=== PATIENT | female | born 1990 | race American Indian/Alaskan Native ===

== ENCOUNTER 2016-10-19 10:08 | Emergency (ER) | payer SELFPAY ==
[2016-10-19 11:16] VITALS: BP 109/74
[2016-10-19 12:35] LABS: Bacteria,Urine 1+ /HPF (Negative); Bilirubin,Urine NEG (Negative); Blood,Urine NEG (Negative); Ketones,Urine 80 mg/dL (Negative); Leukocyte Esterase,Urine TR (Negative); Nitrite,Urine NEG (Negative); Urobilinogen,Urine < 2.0 mg/dL (<2.0)
--- NOTE | 2016-10-19 13:07 | Emergency Department Report ---
ED Female HPI - General Chief complaint: Urogenital-Female Stated complaint: POSS UTI Time Seen by Provider: 10/19/16 13:05 Source: patient, family Mode of arrival: Ambulatory Limitations: No Limitations - History of Present Illness Initial comments: Patient here complaining of urine has having bad odor, lower back pain and pain with urinating. She denies any fever or chills. He reports that started 4 days ago. Pain to lower back is 7 out of 10. Nausea vomiting. Denies any abdominal pain. MD Complaint: dysuria Onset/Timin -: days(s) Location: other (lower back) Radiation: non-radiating Severity: moderate Severity scale (0 -10): 7 Quality: aching Consistency: constant Improves with: none Worsens with: urination Are you Now?: No Associated Symptoms: dysuria. denies: vaginal discharge, vaginal bleeding, abdominal pain, nausea/vomiting, fever/chills, headaches, loss of appetite, hematuria, rash, seizure, shortness of breath, syncope, weakness - Related Data Sexually active: Yes Previous Rx's Medication Instructions Recorded Last Taken Type Nitrofurantoin [place]/M-Cryst 100 mg PO Q12HR #14 capsule 10/19/16 Unknown Rx [Macrobid CAP] Allergies Allergy/AdvReac Type Severity Reaction Status Date / Time No Known Allergies Allergy Unverified 10/08/13 18:22 ED Review of Systems ROS: Stated complaint: POSS UTI Other details as noted in HPI Comment: All other systems reviewed and negative Constitutional: denies: chills, fever Respiratory: no symptoms reported Cardiovascular: denies: chest pain, palpitations, edema, syncope Gastrointestinal: denies: abdominal pain, nausea, vomiting, diarrhea Genitourinary: dysuria. denies: urgency, frequency, hematuria, discharge, abnormal menses, dyspareunia Musculoskeletal: back pain. denies: arthralgia Skin: denies: rash Neurological: denies: headache, weakness, abnormal gait, vertigo ED Past Medical Hx - Past Medical History Previous Medical History?: No - Surgical History Past Surgical History?: No - Family History Family history: no significant - Social History Smoking Status: Never Smoker Substance Use Type: None - Medications Home Medications: Home Medications Medication Instructions Recorded Confirmed Last Taken Type Nitrofurantoin [place]/M-Cryst 100 mg PO Q12HR #14 capsule 10/19/16 Unknown Rx [Macrobid CAP] ED Physical Exam - General Limitations: No Limitations General appearance: alert, in no apparent distress - Head Head exam: Present: atraumatic, normocephalic, normal inspection - Eye Eye exam: Present: normal appearance, PERRL, EOMI Pupils: Present: normal accommodation - ENT ENT exam: Present: normal exam, normal orophraynx, mucous membranes moist, TM's normal bilaterally, normal external ear exam - Neck Neck exam: Present: normal inspection, full ROM. Absent: tenderness, lymphadenopathy - Respiratory Respiratory exam: Present: normal lung sounds bilaterally. Absent: respiratory distress, chest wall tenderness - Cardiovascular Cardiovascular Exam: Present: regular rate, normal rhythm, normal heart sounds - GI/Abdominal GI/Abdominal exam: Present: soft, normal bowel sounds. Absent: distended, tenderness, guarding, rebound, rigid - Extremities Exam Extremities exam: Present: normal inspection, full ROM, normal capillary refill. Absent: tenderness, pedal edema, joint swelling, calf tenderness - Back Exam Back exam: Present: normal inspection, full ROM. Absent: tenderness, CVA tenderness (R), CVA tenderness (L), muscle spasm, paraspinal tenderness, vertebral tenderness, rash noted - Neurological Exam Neurological exam: Present: alert, oriented X3, normal gait, reflexes normal. Absent: motor sensory deficit - Psychiatric Psychiatric exam: Present: normal affect, normal mood - Skin Skin exam: Present: warm, dry, intact, normal color. Absent: rash ED Course Vital Signs 10/19/16 11:13 Temperature 98.4 F Pulse Rate 87 Respiratory 16 Rate Blood Pressure 109/74 O2 Sat by Pulse 100 Oximetry - Reevaluation(s) Reevaluation #1: 10/19/16 14:26 Patient tolerated oral liquids in emergency room without any nausea or vomiting. ED Medical Decision Making - Lab Data Lab Results 10/19/16 Range/Units Unknown Urine Color Yellow (Yellow) Urine Turbidity Clear (Clear) Urine pH 6.0 (5.0-7.0) Ur Specific [place] 1.012 (1.003-1.030) Urine Protein 30 mg/dl (Negative) mg/dL Urine Glucose (UA) Neg (Negative) mg/dL Urine Ketones 80 (Negative) mg/dL Urine Blood Neg (Negative) Urine Nitrite Neg (Negative) Urine Bilirubin Neg (Negative) Urine Urobilinogen < 2.0 (<2.0) mg/dL Ur Leukocyte Esterase Tr (Negative) Urine WBC (Auto) 1.0 (0.0-6.0) /HPF Urine RBC (Auto) 1.0 (0.0-6.0) /HPF U Epithel Cells (Auto) 5.0 (0-13.0) /HPF Urine Bacteria (Auto) 1+ (Negative) /HPF Urine HCG, Qual Negative (Negative) Urine CX pending - Medical Decision Making ED course: Patient here complaining that she feels like she is has a UTI. Urinalysis revealed bladder infection. Patient also has seen and ketones in her urine. Additional lab work ordered for CBC, BMP. IV fluid 1 L bolus ordered. Patient with diffuse IV fluid and blood work. See AMA documentation. I expressed the patient the need for her to have IV fluids and further lab work but she said she wants to go home and drink fluids when she gets home. Patient discharged home in stable condition with her family with prescription for Macrobid. Critical care attestation.: If time is entered above; I have spent that time in minutes in the direct care of this critically ill patient, excluding procedure time. ED Disposition Clinical Impression: Acute cystitis without hematuria, Dehydration, mild, Proteinuria Disposition: DISCHARGED TO HOME OR SELFCARE Is pt being admited?: No Does the pt Need Aspirin: No Condition: Stable Instructions: Urinary Tract Infection in Women (ED), Dehydration (ED) Additional Instructions: Your urine reflects that uvula dehydrated and she refused to have lab work and IV fluid in emergency room. Urine also shows that you have protein in her urine. He will need to follow-up with primary care physician in 3 days. Please strength at least 2-3 L of fluid daily He developed nausea and vomiting, abdominal pain, fever and flank pain please return to emergency room HANH Prescriptions: Nitrofurantoin [place]/M-Cryst [Macrobid CAP] 100 mg PO Q12HR #14 capsule Referrals: PRIMARY CARE, [Primary Care Provider] - 3-5 Days Forms: AMA Form
[2016-10-19] MEDS ORDERED: NACL 0.9% 1000 ML 1,000 ML IV ONE (13:59)
[2016-10-19] MEDS ORDERED: ZOFRAN IV ONE (13:59)
[2016-10-19] MEDS ORDERED: ROCEPHIN IV STA (14:00)
== END 2016-10-19 14:44 | disposition home or self-care (01) ==
LOC: ED 10:08
DX: N30.00 Acute cystitis without hematuria (principal); E86.0 Dehydration; R80.9 Proteinuria, unspecified
CPT/HCPCS: 81001; 81025; 99283

== ENCOUNTER 2017-02-19 06:45 | Emergency (ER) | payer SELFPAY ==
[2017-02-19 07:09] VITALS: BP 110/74
--- NOTE | 2017-02-19 09:13 | XRay Report ---
ROUTINE CHEST, TWO VIEWS: PA and lateral views demonstrate the heart and mediastinal contour to be of normal size and shape. The lungs are clear and fully expanded and the soft tissues and bony structures are normal. IMPRESSION: Normal study.
[2017-02-19] MEDS ORDERED: FLEXERIL PO ONE (10:03)
[2017-02-19] MEDS ORDERED: NORCO 5/325 PO ONE (10:03)
--- NOTE | 2017-02-19 10:43 | Emergency Department Report ---
ED Chest Pain HPI - General Chief Complaint: Chest Pain Stated Complaint: RIGHT SIDE BODY PAIN Source: patient Mode of arrival: Ambulatory Limitations: No Limitations - History of Present Illness Initial Comments: 26 year old female presents to ED with right sided chest pain and right sided body pain x 2-3 days. patient has refused bloodwork and EKG. patient understands and agrees she will have to sign out AMA without bloodwork and EKG results. patient is stable, neurologically intact and in no acute distress. patient denies cough, SOB, fevers, abd pain, N/V. MD Complaint: chest pain -: Gradual Pain Location: right chest Pain Radiation: none Severity: mild Severity scale (0 -10): 6 Quality: aching Consistency: intermittent Improves With: remaining still Worsens With: exertion re: denies: nausea, vomting, diaphoresis, dyspnea Other Symptoms: denies: cough, fever, syncope, rash, leg swelling, palpitations Aspirin use within the Past 7 Days: (0) No - Related Data Previous Rx's Medication Instructions Recorded Last Taken Type Nitrofurantoin [place]/M-Cryst 100 mg PO Q12HR #14 capsule 10/19/16 Unknown Rx [Macrobid CAP] Allergies Allergy/AdvReac Type Severity Reaction Status Date / Time No Known Allergies Allergy Unverified 10/08/13 18:22 Heart Score - HEART Score History: Slightly suspicious EKG: Normal (patient refused EKG and signed out AMA) Age: < 45 Risk factors: No known risk factors Troponin: < normal limit (patient refused blood work and signed out AMA) HEART Score: 0 ED Review of Systems ROS: Stated complaint: RIGHT SIDE BODY PAIN Other details as noted in HPI Constitutional: denies: chills, fever Eyes: denies: eye pain, eye discharge, vision change ENT: denies: ear pain, throat pain Respiratory: denies: cough, shortness of breath, wheezing Cardiovascular: chest pain. denies: palpitations, dyspnea on exertion Endocrine: no symptoms reported Gastrointestinal: denies: abdominal pain, nausea, diarrhea Genitourinary: denies: urgency, dysuria, discharge Musculoskeletal: denies: back pain, joint swelling, arthralgia Skin: denies: rash, lesions Neurological: denies: headache, weakness, paresthesias Psychiatric: denies: anxiety, depression Hematological/Lymphatic: denies: easy bleeding, easy bruising ED Past Medical Hx - Past Medical History Previous Medical History?: Yes Additional medical history: Vaginal delivery 12-04-2013 - Surgical History Past Surgical History?: No - Social History Smoking Status: Never Smoker Substance Use Type: Non Opiate Pain - Medications Home Medications: Home Medications Medication Instructions Recorded Confirmed Last Taken Type Nitrofurantoin [place]/M-Cryst 100 mg PO Q12HR #14 capsule 10/19/16 Unknown Rx [Macrobid CAP] ED Physical Exam - General Limitations: No Limitations General appearance: alert, in no apparent distress - Head Head exam: Present: atraumatic, normocephalic - Eye Eye exam: Present: normal appearance - ENT ENT exam: Present: mucous membranes moist - Neck Neck exam: Present: normal inspection - Respiratory Respiratory exam: Present: normal lung sounds bilaterally. Absent: respiratory distress, wheezes - Cardiovascular Cardiovascular Exam: Present: regular rate, normal rhythm. Absent: systolic murmur, diastolic murmur, rubs, gallop - GI/Abdominal GI/Abdominal exam: Present: soft, normal bowel sounds. Absent: tenderness - Extremities Exam Extremities exam: Present: normal inspection - Back Exam Back exam: Present: normal inspection - Neurological Exam Neurological exam: Present: alert, oriented X3, normal gait - Psychiatric Psychiatric exam: Present: normal affect, normal mood - Skin Skin exam: Present: warm, dry, intact, normal color. Absent: rash ED Course Vital Signs 02/19/17 07:05 Temperature 98.7 F Pulse Rate 72 Respiratory 18 Rate Blood Pressure 110/74 O2 Sat by Pulse 99 Oximetry SARAH score - Sarah Score Age > 65: (0) No Aspirin use within the Past 7 Days: (0) No 3 or more CAD Risk Factors: (0) No 2 or more Angina events in past 24 hrs: (0) No Known CAD with more than 50% Stenosis: (0) No Elevated Cardiac Markers: (0) No (patient has refused blood work and signed out AMA) ST Deviation Greater than 0.5mm: (0) No (patient has refused EKG and signed out AMA) SARAH Score: 0 ED Medical Decision Making - Radiology Data Radiology results: report reviewed Normal Chest xray per radiologist - Medical Decision Making 26 year old female Ms. Garcia has decided to leave against medical advice. She has normal mental status and full decisional capacity. The patient understands her condition and the risks of leaving AMA, including but not limited to permanent disability, , etc. and has had an opportunity to ask questions about her medical condition. The RN working in fast track is also aware of the condition and the patient's desire to leave AMA. The patient has been informed that she may return to ED for care at any time, and has been referred to her local medical physician for follow up HANH. patient is neurologically intact and in no acute distress. Critical care attestation.: If time is entered above; I have spent that time in minutes in the direct care of this critically ill patient, excluding procedure time. ED Disposition Clinical Impression: Chest pain Qualifiers: Chest pain type: unspecified Qualified Code(s): R07.9 - Chest pain, unspecified Disposition: -07 LEFT AGAINST MED ADVICE Is pt being admited?: No Condition: Undetermined Instructions: Chest Pain (ED) Referrals: PRIMARY CARE, [Primary Care Provider] - HANH
== END 2017-02-19 10:21 | disposition left against medical advice (07) ==
LOC: ED 06:45
DX: R07.9 Chest pain, unspecified (principal)
CPT/HCPCS: 71020; 81025; 99284

== ENCOUNTER 2018-11-07 12:29 | Emergency (ER) | payer OTHER ==
[2018-11-07 12:37] VITALS: BP 113/64
--- NOTE | 2018-11-07 12:42 | Emergency Department Report ---
Blank Doc - Documentation Documentation: 28 y o female presents with pelvic pain states 9 weeks with one visit at [facility] denies vag bleed, courtney,
[2018-11-07 13:09] LABS: Bacteria,Urine 1+ /HPF (Negative); Bilirubin,Urine NEG (Negative); Blood,Urine NEG (Negative); Color,Urine Yellow (Yellow); Mucus,Urine FEW /HPF; Protein,Urine <15 mg/dL mg/dL (Negative); RBC,Urine < 1.0 /HPF (0.0-6.0); Urobilinogen,Urine < 2.0 mg/dL (<2.0)
[2018-11-07 13:14] LABS: Basophils % (Auto) 0.7 % (0.0-1.8); Eosinophils # (Auto) 0.1 K/mm3 (0.0-0.4); Eosinophils % (Auto) 1.2 % (0.0-4.3); Hematocrit 34.5 % (30.3-42.9); Hemoglobin 11.6 gm/dl (10.1-14.3); Lymphocytes # (Auto) 1.3 K/mm3 (1.2-5.4); Lymphocytes % (Auto) 24.5 % (13.4-35.0); Mean Corpuscular HGB Conc 34 % (30-34); Mean Corpuscular Volume 87 fl (79-97); Monocytes # (Auto) 0.5 K/mm3 (0.0-0.8); Monocytes % (Auto) 10.1 % (0.0-7.3); Platelet Count 205 K/mm3 (140-440); Red Blood Count 3.96 M/mm3 (3.65-5.03)
--- NOTE | 2018-11-07 16:18 | Ultrasound Report ---
PROCEDURE: US OB <= 14 WEEKS FETUS TECHNIQUE: Ultrasound of the pelvis for early OB performed with a transabdominal and transvaginal im aging HISTORY: preg w/ abd pain . LMP 08/30/2018 with estimated age 19 weeks 6 days and EDC 06/06/2019 COMPARISONS: FINDINGS: Uterus: Uterus is enlarged in size and normal and homogeneous in echogenicity without focal fibroid f ormation. The uterus measures 4.7 x 6.7 x 11.7 cm in size. There is a single early viable intrauter ine gestation noted. Intrauterine gestation: There is a single intrauterine gestation identified with both a pole a nd yolk sac. heart rate is monitored at 128 BPM using M-mode doppler. [place]-rump length measur ement of 0.89 cm corresponds to estimated age 6 weeks 6 days with EDC 06/27/2019.. There is a small sherman bchorionic hemorrhage measuring 8 x 13 mm along the caudal aspect gestational sac. Ovaries: Both ovaries appear normal in size and echogenicity with normal bloodflow bilaterally. The right ovary measures 3.6 x 4.6 x 2.0 cm and the left ovary measures 3.3 x 4.6 x 2.7 cm in size. Other: There is no evidence for solid is adnexal mass is seen. There is no free fluid in the cul-d e-sac. IMPRESSION: Single intrauterine viable with an approximate age of 6 weeks 6 days. This document is electronically signed by Fabiana Ruiz MD., November 07 2018 04:16:14 PM ET
--- NOTE | 2018-11-07 16:30 | Ultrasound Report ---
PROCEDURE: US OB TRANSVAGINAL TECHNIQUE: Ultrasound pelvis for early OB using transabdominal and transvaginal imaging HISTORY: preg with abd pain LMP 08/30/2018 with age 9 weeks 6 days and EDC 06/06/2019 COMPARISONS: None FINDINGS: Uterus: Uterus is enlarged in size and normal and homogeneous in echogenicity without focal fibroid f ormation. The uterus measures 11.7 x 5.7 x 6.7 cm in size. There is a single early viable intrauter ine gestation noted. Intrauterine gestation: There is a single intrauterine gestation identified with both a pole a nd yolk sac. heart rate is monitored at 128 BPM using M-mode doppler. [place]-rump length measur ement of 0.89 cm corresponds to estimated age 6 weeks 6 days with EDC 06/27/2019. There is a small sub chorionic hemorrhage along the caudal aspect of the gestational sac measuring 0.8 x 1.4 x 3.4 cm. Ovaries: Both ovaries appear normal in size and echogenicity with normal bloodflow bilaterally. The right ovary measures 3.6 x 2.0 x 4.6 cm and the left ovary measures 5.5 x 1.9 x 3.7 cm in size. Other: There is no evidence for solid adnexal mass is seen. There is no free fluid in the cul-de-s ac. IMPRESSION: Single intrauterine viable with an approximate age of 6 weeks 6 days. This document is electronically signed by Fabiana Ruiz MD., November 07 2018 04:28:09 PM ET
--- NOTE | 2018-11-07 16:47 | Emergency Department Report ---
ED Abdominal Pain HPI - General Chief Complaint: Abdominal Pain Stated Complaint: 9WKS/PAIN Time Seen by Provider: 11/07/18 12:36 Source: patient Mode of arrival: Ambulatory Limitations: No Limitations - History of Present Illness Initial Comments: Patient is a 28-year-old female who is presenting with lower abdominal discomfort for the past 2-3 days. Patient states that she is approximately 9 weeks but her estimates from her last missed her period. Patient states that she has no dysuria or vaginal bleeding does have some cramping that is intensifying. She states pain is currently a 4 out of 10 in severity. She is not having any issues with nausea vomiting this moment. Severity scale (0 -10): 4 - Related Data Previous Rx's Medication Instructions Recorded Last Taken Type Nitrofurantoin [place]/M-Cryst 100 mg PO Q12HR #14 capsule 10/19/16 Unknown Rx [Macrobid CAP] Allergies Allergy/AdvReac Type Severity Reaction Status Date / Time No Known Allergies Allergy Verified 11/07/18 12:34 ED Review of Systems ROS: Stated complaint: 9WKS/PAIN Other details as noted in HPI Comment: All other systems reviewed and negative ED Past Medical Hx - Past Medical History Previous Medical History?: No Additional medical history: Vaginal delivery 12-04-2013 - Surgical History Past Surgical History?: No - Social History Smoking Status: Never Smoker Substance Use Type: None - Medications Home Medications: Home Medications Medication Instructions Recorded Confirmed Last Taken Type Nitrofurantoin [place]/M-Cryst 100 mg PO Q12HR #14 capsule 10/19/16 Unknown Rx [Macrobid CAP] ED Physical Exam - General Limitations: No Limitations General appearance: alert, in no apparent distress - Head Head exam: Present: atraumatic, normocephalic - Eye Eye exam: Present: normal appearance - ENT ENT exam: Present: mucous membranes moist - Neck Neck exam: Present: normal inspection - Respiratory Respiratory exam: Present: normal lung sounds bilaterally. Absent: respiratory distress, wheezes, rales, rhonchi - Cardiovascular Cardiovascular Exam: Present: regular rate, normal rhythm. Absent: systolic murmur, diastolic murmur, rubs, gallop - GI/Abdominal GI/Abdominal exam: Present: soft, normal bowel sounds. Absent: distended, tenderness, guarding, rebound - Extremities Exam Extremities exam: Present: normal inspection - Back Exam Back exam: Present: normal inspection - Neurological Exam Neurological exam: Present: alert, oriented X3 - Psychiatric Psychiatric exam: Present: normal affect, normal mood - Skin Skin exam: Present: warm, dry, intact, normal color. Absent: rash ED Course Vital Signs 11/07/18 12:35 Temperature 97.7 F Pulse Rate 77 Respiratory 18 Rate Blood Pressure 113/64 O2 Sat by Pulse 100 Oximetry ED Medical Decision Making - Lab Data Result diagrams: 11/07/18 13:01 Lab Results 11/07/18 11/07/18 11/07/18 Range/Units 12:47 13:01 13:01 WBC 5.3 (4.5-11.0) K/mm3 RBC 3.96 (3.65-5.03) M/mm3 Hgb 11.6 (10.1-14.3) gm/dl Hct 34.5 (30.3-42.9) % MCV 87 (79-97) fl MCH 29 (28-32) pg MCHC 34 (30-34) % RDW 14.0 (13.2-15.2) % Plt Count 205 (140-440) K/mm3 Lymph % (Auto) 24.5 (13.4-35.0) % [place] % (Auto) 10.1 H (0.0-7.3) % Eos % (Auto) 1.2 (0.0-4.3) % Baso % (Auto) 0.7 (0.0-1.8) % Lymph # 1.3 (1.2-5.4) K/mm3 [place] # 0.5 (0.0-0.8) K/mm3 Eos # 0.1 (0.0-0.4) K/mm3 Baso # 0.0 (0.0-0.1) K/mm3 Seg Neutrophils % 63.5 (40.0-70.0) % Seg Neutrophils # 3.4 (1.8-7.7) K/mm3 HCG, Quant (0-4) mIU/mL Urine Color Yellow (Yellow) Urine Turbidity Clear (Clear) Urine pH 6.0 (5.0-7.0) Ur Specific [place] 1.011 (1.003-1.030) Urine Protein <15 mg/dl (Negative) mg/dL Urine Glucose (UA) Neg (Negative) mg/dL Urine Ketones Neg (Negative) mg/dL Urine Blood Neg (Negative) Urine Nitrite Neg (Negative) Urine Bilirubin Neg (Negative) Urine Urobilinogen < 2.0 (<2.0) mg/dL Ur Leukocyte Esterase Neg (Negative) Urine WBC (Auto) 1.0 (0.0-6.0) /HPF Urine RBC (Auto) < 1.0 (0.0-6.0) /HPF U Epithel Cells (Auto) < 1.0 (0-13.0) /HPF Urine Bacteria (Auto) 1+ (Negative) /HPF Urine Mucus Few /HPF Blood Type O POSITIVE Antibody Screen Negative 11/07/18 Range/Units 13:01 WBC (4.5-11.0) K/mm3 RBC (3.65-5.03) M/mm3 Hgb (10.1-14.3) gm/dl Hct (30.3-42.9) % MCV (79-97) fl MCH (28-32) pg MCHC (30-34) % RDW (13.2-15.2) % Plt Count (140-440) K/mm3 Lymph % (Auto) (13.4-35.0) % [place] % (Auto) (0.0-7.3) % Eos % (Auto) (0.0-4.3) % Baso % (Auto) (0.0-1.8) % Lymph # (1.2-5.4) K/mm3 [place] # (0.0-0.8) K/mm3 Eos # (0.0-0.4) K/mm3 Baso # (0.0-0.1) K/mm3 Seg Neutrophils % (40.0-70.0) % Seg Neutrophils # (1.8-7.7) K/mm3 HCG, Quant [id number] H (0-4) mIU/mL Urine Color (Yellow) Urine Turbidity (Clear) Urine pH (5.0-7.0) Ur Specific [place] (1.003-1.030) Urine Protein (Negative) mg/dL Urine Glucose (UA) (Negative) mg/dL Urine Ketones (Negative) mg/dL Urine Blood (Negative) Urine Nitrite (Negative) Urine Bilirubin (Negative) Urine Urobilinogen (<2.0) mg/dL Ur Leukocyte Esterase (Negative) Urine WBC (Auto) (0.0-6.0) /HPF Urine RBC (Auto) (0.0-6.0) /HPF U Epithel Cells (Auto) (0-13.0) /HPF Urine Bacteria (Auto) (Negative) /HPF Urine Mucus /HPF Blood Type Antibody Screen - Radiology Data [facility] [address] [place] [address] Ultrasound Report Signed Patient: KAYLEE COVARRUBIAS MR#: [id number] : 1990 Acct:[id number] Age/Sex: 28 / F ADM Date: 11/07/18 Loc: ED Attending Dr: Ordering Physician: LOUANN ESPINOZA MD Date of Service: 11/07/18 Procedure(s): US OB transvaginal Accession Number(s): [id number] cc: LOUANN ESPINOZA MD PROCEDURE: US OB TRANSVAGINAL TECHNIQUE: Ultrasound pelvis for early OB using transabdominal and transvaginal imaging HISTORY: preg with abd pain LMP 08/30/2018 with age 9 weeks 6 days and EDC 06/06/2019 COMPARISONS: None FINDINGS: Uterus: Uterus is enlarged in size and normal and homogeneous in echogenicity without focal fibroid formation. The uterus measures 11.7 x 5.7 x 6.7 cm in size. There is a single early viable intrauterine gestation noted. Intrauterine gestation: There is a single intrauterine gestation identified with both a pole and yolk sac. heart rate is monitored at 128 BPM using M-mode doppler. [place]-rump length measurement of 0.89 cm corresponds to estimated age 6 weeks 6 days with EDC 06/27/2019. There is a small subchorionic hemorrhage along the caudal aspect of the gestational sac measuring 0.8 x 1.4 x 3.4 cm. Ovaries: Both ovaries appear normal in size and echogenicity with normal bloodflow bilaterally. The right ovary measures 3.6 x 2.0 x 4.6 cm and the left ovary measures 5.5 x 1.9 x 3.7 cm in size. Other: There is no evidence for solid adnexal mass is seen. There is no free fluid in the cul-de-sac. IMPRESSION: Single intrauterine viable with an approximate age of 6 weeks 6 days. This document is electronically signed by Fabiana Ruiz MD., November 07 2018 04:28:09 PM ET Transcribed By: [facility] Dictated By: FABIANA RUIZ MD Electronically Authenticated By: FABIANA RUIZ MD Signed Date/Time: 11/07/18 1630 [id number]/ [id number] Critical care attestation.: If time is entered above; I have spent that time in minutes in the direct care of this critically ill patient, excluding procedure time. ED Disposition Clinical Impression: Abdominal pain affecting Viable Qualifiers: Trimester: first trimester Qualified Code(s): Z34.91 - Encounter for supervision of normal , unspecified, first trimester Disposition: DC-01 TO HOME OR SELFCARE Is pt being admited?: No Does the pt Need Aspirin: No Condition: Stable Instructions: (ED) Referrals: REAGAN MCCRAY MD [Staff Physician] - 3-5 Days Time of Disposition: 16:46
== END 2018-11-07 17:07 | disposition home or self-care (01) ==
LOC: ED 12:29
DX: O26.891 Other specified pregnancy related conditions, first trimester (principal); R10.30 Lower abdominal pain, unspecified; Z3A.09 9 weeks gestation of pregnancy
CPT/HCPCS: 36415; 76801; 76817; 81001; 84702; 85025; 86850; 86900; 86901; 99284

== ENCOUNTER 2019-02-24 09:55 | Emergency (ER) | payer OTHER ==
[2019-02-24 10:32] VITALS: BP 116/62
--- NOTE | 2019-02-24 11:26 | Emergency Department Report ---
ED HPI - General Chief complaint: Nausea/Vomiting/Diarrhea Stated complaint: 5MTHS /HERNIA PAIN Time Seen by Provider: 02/24/19 10:51 Source: patient Mode of arrival: Ambulatory Limitations: No Limitations - History of Present Illness Initial comments: Patient is a 28-year-old female who presents to the Emergency Department with complaints of an abdominal hernia which she has had for 5 years. She states it started causing some discomfort for the past 2 months. She states she notices after she eats it enlarges. She denies any vomiting, diarrhea, fever, urinary symptoms or vaginal bleeding. She is tolerating PO intake without difficulty. She is currently 20 weeks . Her OB is Dr. Persaud at [facility] and she has an appointment with her tomorrow (02/25/19). denies any past medical history or allergies to medications - Related Data Previous Rx's Medication Instructions Recorded Last Taken Type Nitrofurantoin Alexander/M-Cryst 100 mg PO Q12HR #14 capsule 10/19/16 Unknown Rx [Macrobid CAP] Allergies Allergy/AdvReac Type Severity Reaction Status Date / Time No Known Allergies Allergy Verified 11/07/18 12:34 ED Review of Systems ROS: Stated complaint: 5MTHS /HERNIA PAIN Other details as noted in HPI Comment: All other systems reviewed and negative ED Past Medical Hx - Past Medical History Previous Medical History?: No Additional medical history: Vaginal delivery 12-04-2013 - Surgical History Past Surgical History?: No - Social History Smoking Status: Never Smoker Substance Use Type: None - Medications Home Medications: Home Medications Medication Instructions Recorded Confirmed Last Taken Type Nitrofurantoin Alexander/M-Cryst 100 mg PO Q12HR #14 capsule 10/19/16 Unknown Rx [Macrobid CAP] ED Physical Exam - General Limitations: No Limitations General appearance: alert, in no apparent distress - Head Head exam: Present: atraumatic, normocephalic - Eye Eye exam: Present: normal appearance, PERRL - ENT ENT exam: Present: mucous membranes moist - Respiratory Respiratory exam: Present: normal lung sounds bilaterally. Absent: respiratory distress, wheezes, rales, rhonchi, stridor, chest wall tenderness, accessory muscle use, decreased breath sounds, prolonged expiratory - Cardiovascular Cardiovascular Exam: Present: regular rate, normal rhythm, normal heart sounds. Absent: systolic murmur, diastolic murmur, rubs, gallop - GI/Abdominal GI/Abdominal exam: Present: soft, normal bowel sounds, hernia (small easily reducible umbilical hernia), other (diastasis recti, gravid ). Absent: tenderness, guarding, rebound, rigid - Back Exam Back exam: Absent: CVA tenderness (R), CVA tenderness (L) - Neurological Exam Neurological exam: Present: alert, oriented X3 - Psychiatric Psychiatric exam: Present: normal affect, normal mood - Skin Skin exam: Present: warm, dry, intact ED Course Vital Signs 02/24/19 10:29 Temperature 98.3 F Pulse Rate 88 Respiratory 16 Rate Blood Pressure 116/62 O2 Sat by Pulse 100 Oximetry ED Medical Decision Making - Medical Decision Making Patient is a 28-year-old female who presents to the Emergency Department with complaints of an abdominal hernia which she has had for 5 years. She states it started causing some discomfort for the past 2 months. She states she notices after she eats it enlarges. She denies any vomiting, diarrhea, fever, urinary symptoms or vaginal bleeding. She is tolerating PO intake without difficulty. She is currently 20 weeks . Her OB is Dr. Persaud at [facility] and she has an appointment with her tomorrow (02/25/19). denies any past medical history or allergies to medications. VSS. on exam: small easily reducible umbilical hernia, and diastasis recti. advised pt to please keep your appointment with your PANTOGRAPH OPERATOR tomorrow. Drink plenty of fluids and continue to take your vitamin. Follow-up with primary care doctor in the next 2-3 days. May take Tylenol for any discomfort. Return to the emergency room for any new or worsening symptoms. Critical care attestation.: If time is entered above; I have spent that time in minutes in the direct care of this critically ill patient, excluding procedure time. ED Disposition Clinical Impression: Diastasis of rectus abdominis Umbilical hernia Qualifiers: Obstruction and gangrene presence: without obstruction or gangrene Qualified Code(s): K42.9 - Umbilical hernia without obstruction or gangrene Disposition: TO HOME OR SELFCARE Is pt being admited?: No Does the pt Need Aspirin: No Condition: Stable Instructions: Umbilical Hernia (ED) Additional Instructions: Please keep your appointment with your PANTOGRAPH OPERATOR tomorrow. Drink plenty of fluids and continue to take your vitamin. Follow-up with primary care doctor in the next 2-3 days. May take Tylenol for any discomfort. Return to the emergency room for any new or worsening symptoms. Referrals: [facility] [Provider Group] - 2-3 Days Time of Disposition: 11:25 Print Language: MALTESE
== END 2019-02-24 11:43 | disposition home or self-care (01) ==
LOC: ED 09:55
DX: O99.612 Diseases of the digestive system complicating pregnancy, second trimester (principal); K42.9 Umbilical hernia without obstruction or gangrene; Z3A.20 20 weeks gestation of pregnancy
CPT/HCPCS: 99282

== ENCOUNTER 2019-06-12 20:51 | Outpatient (CLI) | payer OTHER ==
[2019-06-12 21:28] VITALS: BP 140/92
--- NOTE | 2019-06-12 23:16 | Ultrasound Report ---
OB limited INDICATION: Pelvic pain following injury TECHNIQUE: Real-time grayscale and Doppler imaging of the pelvis obtained with attention paid to the placenta. FINDINGS: The placenta is anterior without evidence of abruption. RANJITH measures 10.3 cm. The fetus is in cephalic position heart rate is 125 bpm IMPRESSION: No evidence of placental abruption, as above. Signer Name: Cecil Means MD Signed: 06/12/2019 11:11 PM Workstation Name: [id number]
[2019-06-13 07:06] LABS: Bacteria,Urine 2+ /HPF (Negative); Bilirubin,Urine NEG (Negative); Blood,Urine MOD (Negative); Color,Urine Yellow (Yellow); Hyaline Casts,Urine 1 /LPF; Urobilinogen,Urine < 2.0 mg/dL (<2.0)
== END 2019-06-12 23:55 | disposition home or self-care (01) ==
LOC: TRG 20:51
PROVIDERS: ATTEND Obstetrics & Gynecology
DX: O47.1 False labor at or after 37 completed weeks of gestation (principal); Z3A.38 38 weeks gestation of pregnancy
CPT/HCPCS: 59025; 76815; 81001

== ENCOUNTER 2019-06-26 23:38 | Outpatient (CLI) | payer OTHER ==
[2019-06-27 00:11] VITALS: BP 126/82
== END 2019-06-27 02:15 | disposition home or self-care (01) ==
LOC: TRG 23:38
PROVIDERS: ATTEND Obstetrics & Gynecology
DX: O47.1 False labor at or after 37 completed weeks of gestation (principal); Z3A.40 40 weeks gestation of pregnancy
CPT/HCPCS: 59025